=== PATIENT | female | born 1970 | race Caucasian/White ===

== ENCOUNTER 2021-12-29 16:31 | Emergency (ER) | payer BC, OTHER ==
[~2021-12-29] VITALS: Ht 165.1 cm; Wt 68.0 kg
[~2021-12-29 16:31] MED LIST: ALBUTEROL NEB; ASMANEX; WELLBUTRIN; XOPENEX HFA15 G1 IH; Z.0.SINGULAIR10 MG PO
[2021-12-29] MEDS ORDERED: TETANUS/DIPHTHERIA TOX ADULT 0.5 ML SYR IM STA (16:48)
[2021-12-29] MEDS ORDERED: AUGMENTIN 500-1 EACH PO (16:56)
[2021-12-29] MEDS ORDERED: IBUPROFEN200 MG PO (16:56)
[2021-12-29] MEDS ORDERED: CEFTRIAXONE 1 GM VIAL IM ONE (17:00)
[2021-12-29] MEDS ORDERED: LIDOCAINE HCL 1% LOCAL INJ 20 ML VIAL ONE (17:21)
[2021-12-29] MEDS ORDERED: TETANUS/DIPHTHERIA TOX ADULT 0.5 ML SYR ONE (17:22)
== END 2021-12-29 17:30 | disposition home or self-care (01) ==
LOC: FSED 16:53
DX: S60.572A Other superficial bite of hand of left hand, initial encounter (principal); W55.01XA Bitten by cat, initial encounter; Y92.89 Other specified places as the place of occurrence of the external cause
CPT/HCPCS: 90471; 90714; 99282; J0696; J2001